=== PATIENT | female | born 1990 | race Caucasian/White ===

== ENCOUNTER 2017-05-10 08:58 | Emergency (ER) | payer BC ==
[~2017-05-10 08:58] MED LIST: ACE3 PO; AUG875 PO; BACDS PO; FERR-1 PO; IBU800 PO; LOR5/325 PO; MET10 PO; OND4 PO; ONDA4TAB PO; PREN-85 PO; PRO25 PO
--- NOTE | 2017-05-10 09:01 | ER Report ---
History and Physical Time Seen By MD: 09:00 HPI/BANG CHIEF COMPLAINT: vomiting and diarrhea. HISTORY OF PRESENT ILLNESS: This is a 26 year old female. She started having vomiting and diarrhea this morning. Diarrhea is almost pure water. She is throwing up clear to yellow colored emesis. Concerned about weight loss, states 10 lbs in 24 hours. She denies any abdominal pain. No fevers, but has been sweaty and with the chills. She works at [employer], so has been in contact with sick patients. She may have had some bad food exposure last night with some valentin from [employer]. She is on the Mirena, so no menses. She has no history of bowel infections in the past and no problems with colon or intestines in the past. No blood in the stool REVIEW OF SYSTEMS: Constitutional: As above. Eyes: No vision changes. ENT: No sore throat. No congestion. Cardiovascular: No chest pain. Respiratory: No cough. No shortness of breath. Gastrointestinal: As above. Genitourinary: No dysuria. No hematuria. Musculoskeletal: No muscle or joint aches. Skin: No rashes. Neurological: No weakness or numbness. Allergies: Coded Allergies: No Known Drug Allergies (Verified , 05/10/17) Home Meds Discontinued Scripts Ondansetron (ZOFRAN ODT) 4 Mg Tab.rapdis, 4 MG PO Q6H Y for NAUSEA, #20 TAB TAKE 1 TABLET BY MOUTH EVERY 12 HOURS Prov:SOULEYMANE RESENDIZ MD 05/05/16 Reviewed Nurses Notes: Yes Hx Smoking: No Hx Substance Use Disorder: No Hx Alcohol Use: No Constitutional Vital Sign - Last 24 Hours 05/10/17 05/10/17 05/10/17 05/10/17 09:03 09:05 09:15 09:30 Temp 98.4 Pulse 85 77 72 Resp 16 B/P (MAP) 126/95 (105) 126/95 Pulse Ox 94 92 93 05/10/17 05/10/17 05/10/17 05/10/17 09:32 09:45 10:30 10:45 Pulse 80 67 58 B/P (MAP) 119/82 (94) 112/73 (86) Pulse Ox 95 93 92 05/10/17 05/10/17 05/10/17 05/10/17 11:00 11:15 11:30 11:31 Pulse 84 64 66 B/P (MAP) 100/71 (81) 107/75 (86) 104/74 (84) Pulse Ox 92 93 94 Physical Exam General Appearance: The patient is alert. No acute distress. Eyes: Pupils are equal, round. No pallor, injection or icterus. ENT: Mucous membranes are moist. Normal oral mucosa. Posterior oropharynx is normal. Neck: Supple and non tender. Respiratory: Lungs are clear to auscultation. Cardiovascular: Regular rate and rhythm. No murmurs, gallops or rubs. Normal capillary refill. Gastrointestinal: Abdomen is soft and non tender. Nondistended. Hyperactive bowel sounds. No costovertebral angle tenderness with percussion. Neurological: Alert and oriented x3. No focal neurologic deficits Skin: Warm and dry. DIFFERENTIAL DIAGNOSIS: After history and physical exam, differential diagnosis was considered for vomiting and diarrhea, consider viral gastroenteritis vs food poisoning. Medical Decision Making Data Points Result Diagram: 05/10/17 0915 05/10/17 0915 Laboratory Hematology Test 05/10/17 09:15 05/10/17 10:22 Red Blood Count 5.82 M/uL (4.17-5.56) Mean Corpuscular Volume 87.3 fL (80.0-96.0) Mean Corpuscular Hemoglobin 30.1 pg (26.0-33.0) Mean Corpuscular Hemoglobin Concent 34.5 g/dL (32.0-36.0) Red Cell Distribution Width 12.6 % (11.5-14.5) Mean Platelet Volume 8.6 fL (7.2-11.1) Neutrophils (%) (Auto) 90.1 % (39.4-72.5) Lymphocytes (%) (Auto) 7.1 % (17.6-49.6) Monocytes (%) (Auto) 2.3 % (4.1-12.4) Eosinophils (%) (Auto) 0.2 % (0.4-6.7) Basophils (%) (Auto) 0.3 % (0.3-1.4) Nucleated RBC Relative Count (auto) 0.0 /100WBC Neutrophils # (Auto) 13.0 K/uL (2.0-7.4) Lymphocytes # (Auto) 1.0 K/uL (1.3-3.6) Monocytes # (Auto) 0.3 K/uL (0.3-1.0) Eosinophils # (Auto) 0.0 K/uL (0.0-0.5) Basophils # (Auto) 0.0 K/uL (0.0-0.1) Nucleated RBC Absolute Count (auto) 0.00 K/uL Sodium Level 140 mmol/L (137-145) Potassium Level 4.0 mmol/L (3.5-5.0) Chloride Level 104 mmol/L (98-107) Carbon Dioxide Level 19 mmol/L (22-31) Blood Urea Nitrogen 28 mg/dl (7-18) Creatinine 0.90 mg/dl (0.52-1.04) Glomerular Filtration Rate Calc > 60.0 Random Glucose 109 mg/dl (75-110) Calcium Level 9.8 mg/dl (8.4-10.2) Total Bilirubin 0.9 mg/dl (0.2-1.3) Aspartate Amino Transf (AST/SGOT) 32 U/L (0-35) Alanine Aminotransferase (ALT/SGPT) 38 U/L (0-56) Alkaline Phosphatase 72 U/L (0-126) Total Protein 8.9 gm/dl (6.3-8.2) Albumin 5.1 g/dl (3.5-5.0) Human Chorionic Gonadotropin, Qual Negative (NEGATIVE) Urine Color Yellow Urine Clarity Clear Urine pH 5.0 pH (4.8-9.5) Urine Specific Rembert 1.026 Urine Protein 30 mg/dL (NEGATIVE) Urine Glucose (UA) Negative mg/dL (NEGATIVE) Urine Ketones Trace mg/dL (NEGATIVE) Urine Blood Negative (NEGATIVE) Urine Nitrite Negative (NEGATIVE) Urine Bilirubin Negative (NEGATIVE) Urine Urobilinogen Negative mg/dL (0.2-1.9) Urine Leukocyte Esterase Negative (NEGATIVE) Urine RBC 1 /HPF (0-2/HPF) Urine WBC 2 /HPF (0-5/HPF) Urine Squamous Epithelial Cells Many /LPF (</=FEW) Urine Bacteria Negative /HPF (NONE-FEW) Urine Mucus Few /HPF (NONE-FEW) Chemistry Test 05/10/17 09:15 05/10/17 10:22 White Blood Count 14.4 k/uL (4.5-11.0) Red Blood Count 5.82 M/uL (4.17-5.56) Hemoglobin 17.5 g/dL (12.0-16.0) Hematocrit 50.8 % (34.0-47.0) Mean Corpuscular Volume 87.3 fL (80.0-96.0) Mean Corpuscular Hemoglobin 30.1 pg (26.0-33.0) Mean Corpuscular Hemoglobin Concent 34.5 g/dL (32.0-36.0) Red Cell Distribution Width 12.6 % (11.5-14.5) Platelet Count 251 K/uL (150-450) Mean Platelet Volume 8.6 fL (7.2-11.1) Neutrophils (%) (Auto) 90.1 % (39.4-72.5) Lymphocytes (%) (Auto) 7.1 % (17.6-49.6) Monocytes (%) (Auto) 2.3 % (4.1-12.4) Eosinophils (%) (Auto) 0.2 % (0.4-6.7) Basophils (%) (Auto) 0.3 % (0.3-1.4) Nucleated RBC Relative Count (auto) 0.0 /100WBC Neutrophils # (Auto) 13.0 K/uL (2.0-7.4) Lymphocytes # (Auto) 1.0 K/uL (1.3-3.6) Monocytes # (Auto) 0.3 K/uL (0.3-1.0) Eosinophils # (Auto) 0.0 K/uL (0.0-0.5) Basophils # (Auto) 0.0 K/uL (0.0-0.1) Nucleated RBC Absolute Count (auto) 0.00 K/uL Glomerular Filtration Rate Calc > 60.0 Calcium Level 9.8 mg/dl (8.4-10.2) Total Bilirubin 0.9 mg/dl (0.2-1.3) Aspartate Amino Transf (AST/SGOT) 32 U/L (0-35) Alanine Aminotransferase (ALT/SGPT) 38 U/L (0-56) Alkaline Phosphatase 72 U/L (0-126) Total Protein 8.9 gm/dl (6.3-8.2) Albumin 5.1 g/dl (3.5-5.0) Human Chorionic Gonadotropin, Qual Negative (NEGATIVE) Urine Color Yellow Urine Clarity Clear Urine pH 5.0 pH (4.8-9.5) Urine Specific Rembert 1.026 Urine Protein 30 mg/dL (NEGATIVE) Urine Glucose (UA) Negative mg/dL (NEGATIVE) Urine Ketones Trace mg/dL (NEGATIVE) Urine Blood Negative (NEGATIVE) Urine Nitrite Negative (NEGATIVE) Urine Bilirubin Negative (NEGATIVE) Urine Urobilinogen Negative mg/dL (0.2-1.9) Urine Leukocyte Esterase Negative (NEGATIVE) Urine RBC 1 /HPF (0-2/HPF) Urine WBC 2 /HPF (0-5/HPF) Urine Squamous Epithelial Cells Many /LPF (</=FEW) Urine Bacteria Negative /HPF (NONE-FEW) Urine Mucus Few /HPF (NONE-FEW) Urinalysis Test 05/10/17 10:22 Urine Color Yellow Urine Clarity Clear Urine pH 5.0 pH (4.8-9.5) Urine Specific Rembert 1.026 Urine Protein 30 mg/dL (NEGATIVE) Urine Glucose (UA) Negative mg/dL (NEGATIVE) Urine Ketones Trace mg/dL (NEGATIVE) Urine Blood Negative (NEGATIVE) Urine Nitrite Negative (NEGATIVE) Urine Bilirubin Negative (NEGATIVE) Urine Urobilinogen Negative mg/dL (0.2-1.9) Urine Leukocyte Esterase Negative (NEGATIVE) Urine RBC 1 /HPF (0-2/HPF) Urine WBC 2 /HPF (0-5/HPF) Urine Squamous Epithelial Cells Many /LPF (</=FEW) Urine Bacteria Negative /HPF (NONE-FEW) Urine Mucus Few /HPF (NONE-FEW) EKG/Imaging Imaging Exam type: ACUTE ABDOMEN SERIES 3 VIEW History: vomiting, diarrhea Comparison: None. Findings: Supine and upright views the abdomen reveal a nonspecific bowel gas pattern. An IUD projects to the right of midline in the lower pelvis. There is no gross evidence of organomegaly or pathologic intra-abdominal calcification seen. PA view the chest reveals no evidence of focal infiltrates, pleural effusions or pulmonary edema. The cardiac silhouette is normal in size. IMPRESSION: 1. Nonspecific bowel gas pattern No evidence of pulmonary consolidation Report Dictated By: Vilma Saleem MD at 05/10/2017 10:35 AM ED Course/Re-evaluation Clinical Indication for ER IV: Hydration, IV Access ED Course Labs showed an elevated BUN/Cr ratio with a BUN of 28 and Cr of 0.9. Labs show a elevated white blood cell count with left shift. This may represent demargination from her vomiting. Could represent a gastroenteritis or nonspecific enteritis as well. Urinalysis shows trace ketones and concentration. Imaging showed a non-specific bowel gas pattern. She felt better after a liter of fluids and Zofran. Discussed labs and imaging results with the patient. She feels better and will return home. No diarrhea while here, so stool studies, while ordered, were not obtained. Decision to Disposition Date: May 10, 2017 Decision to Disposition Time: 11:25 Depart Departure Latest Vital Signs Vital Signs Date Time Temp Pulse Resp B/P (MAP) Pulse Ox O2 Delivery O2 Flow Rate FiO2 05/10/17 11:31 104/74 (84) 05/10/17 11:30 66 94 05/10/17 09:05 98.4 16 Impression: Primary Impression: Dehydration Additional Impression: Enteritis Condition: Improved Disposition: HOME OR SELF-CARE Referrals: PAULINO RAMON MD (PCP) New Scripts No Active Prescriptions or Reported Meds Patient Instructions: Food Poisoning (ED), Gastroenteritis (ED) Additional Instructions: We think that you have food poisoning versus a viral gastroenteritis. Increase fluid intake and rest over the next few days. Take Zofran 4mg, one every 6 hours as needed for nausea. This should resolve in about 48 to 72 hours. If worsening, please return for re-evaluation. Problem Qualifiers SAGE MORRISON MD May 10, 2017 09:01
[2017-05-10] MEDS ORDERED: NS(*) 0.9% 1000 ML BAG 1,000 ML IV ONE (09:05)
[2017-05-10] MEDS ORDERED: ONDANSETRON 4 MG/2 ML VIAL IVP ONE (09:05)
[2017-05-10 09:55] LABS: PLATELET COUNT, AUTOMATED 251 K/uL (150-450)
--- NOTE | 2017-05-10 10:39 | RADIOLOGY IMAGING REPORT ---
[place] [facility] [place] Cecilia Thompson : 1990 MR: [id number] V: [id number] EXAM DATE: ORDERING PHYSICIAN: SAGE MORRISON TECHNOLOGIST: Location: [facility] Patient: Cecilia Thompson : 1990 Visit/Account:[id number] Date of Sevice: 05/10/2017 Exam type: ACUTE ABDOMEN SERIES 3 VIEW History: vomiting, diarrhea Comparison: None. Findings: Supine and upright views the abdomen reveal a nonspecific bowel gas pattern. An IUD projects to the right of midline in the lower pelvis. There is no gross evidence of organomegaly or pathologic intra -abdominal calcification seen. PA view the chest reveals no evidence of focal infiltrates, pleural effusions or pulmonary edema. Th e cardiac silhouette is normal in size. IMPRESSION: 1. Nonspecific bowel gas pattern No evidence of pulmonary consolidation Report Dictated By: Vilma Saleem MD at 05/10/2017 10:35 AM Report E-Signed By: Vilma Saleem MD at 05/10/2017 10:36 AM WSN:[email or web address]
[2017-05-10 11:31] VITALS: BP 104/74
== END 2017-05-10 11:38 | disposition home or self-care (01) ==
LOC: ER 09:05
DX: K52.9 Noninfective gastroenteritis and colitis, unspecified (principal); E86.0 Dehydration
CPT/HCPCS: 74022; 81001; 84703; 85025; 96361; 96374; 99283; J2405; J7030; 82040; 82247; 82310; 82374; 82435; 82565; 82947; 84075; 84132; 84155; 84295; 84450; 84460; 84520

== ENCOUNTER → 2017-07-11 | Outpatient (CLI) | payer BC ==
[~2017-07-11] MED LIST changes: +ALBU8.5H IH; +CITA-156 PO
--- NOTE | 2017-07-11 17:25 | RADIOLOGY IMAGING REPORT ---
FACILITY: [facility] [place] PATIENT NAME: Cecilia Thompson : 1990 MR: [id number] V: [id number] EXAM DATE: ORDERING PHYSICIAN: ELI ORTIZ TECHNOLOGIST: Location: [facility] Patient: Cecilia Thompson : 1990 Visit/Account:[id number] Date of Sevice: 07/11/2017 KIDNEYS EXAMINATION: Renal ultrasound. 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 Hydronephrosis: none Resistive index on the right 0.53 on the left 0.59 Bladder: Prevoid volume 130 mL. Post for residual 80 mL. Bilateral ureteral jets were identified. Abdominal aorta and IVC: Aorta and IVC are patent by Doppler ultrasound. IMPRESSION: There is a small residual portion of the right kidney is noted in this patient with history of prior partial right nephrectomy at nine months of age. There appears to be compensatory hypertrophy of the left kidney Report Dictated By: Vilma Saleem MD at 07/11/2017 5:21 PM Report E-Signed By: Vlima Saleem MD at 07/11/2017 5:22 PM WSN:[email or web address]
== END ==
LOC: US 02:17
PROVIDERS: ATTEND Emergency Medicine
DX: N28.81 Hypertrophy of kidney (principal)
CPT/HCPCS: 76705

== ENCOUNTER → 2017-09-27 | Outpatient (CLI) | payer BC ==
[~2017-09-27] MED LIST changes: +ALPR-429 PO; +BUPR-472 PO; +CITA-141 PO
[2017-09-27 08:33] LABS: PLATELET COUNT, AUTOMATED 206 K/uL (150-450)
[2017-09-27 08:48] LABS: LDL CHOLESTEROL 63 mg/dl
== END ==
LOC: LAB 08:12
PROVIDERS: ATTEND Emergency Medicine
DX: F41.8 Other specified anxiety disorders (principal)
CPT/HCPCS: 36415; 82040; 82247; 82306; 82310; 82374; 82435; 82465; 82565; 82607; 82947; 83718; 84075; 84132; 84155; 84295; 84443; 84450; 84460; 84478; 84520; 85025

== ENCOUNTER → 2017-10-03 | Outpatient (CLI) | payer BC ==
[~2017-10-03] MED LIST changes: +BUS5 PO
== END ==
LOC: LAB 13:22
PROVIDERS: ATTEND Emergency Medicine
DX: R79.89 Other specified abnormal findings of blood chemistry (principal)
CPT/HCPCS: 36415; 84439; 84443; 84481; 86376